=== PATIENT | female | born 1990 | race Caucasian/White ===

== ENCOUNTER 2019-06-07 12:13 | Emergency (ER) | payer MEDICAID ==
[2019-06-07 12:21] VITALS: BP 142/81
[2019-06-07] MEDS ORDERED: LIDOCAINE 1%-EPI 1:100000 20 ML MDV SUBQ STA (13:04)
[2019-06-07] MEDS ORDERED: BACITRACIN ZINC OINT 1 PACKET TOP STA (13:36)
--- NOTE | 2019-06-07 13:44 | ED Physician Documentation ---
PD HPI UPPER EXT INJURY - Stated complaint Stated Complaint: RT HAND LAC - Chief complaint Chief Complaint: Laceration - History obtained from History obtained from: Patient - History of Present Illness Location: Right, Hand Type of injury: Laceration Where injury occurred: Home Timing - onset: How many hours ago (1) Timing - details: Abrupt onset Pain level max: 2 Pain level now: 1 - Additonal information Additional information: 28-year-old female returning here presents to the emergency department for lace ration to the right hand. This occurred while doing dishes today. Unknown last tetanus. She is right-handed. Nothing makes it better or worse. Review of Systems Constitutional: denies: Fever, Chills : denies: Now EGA Skin: denies: Rash PD PAST MEDICAL HISTORY - Past Medical History Past Medical History: No - Allergies Allergies/Adverse Reactions: Allergies Allergy/AdvReac Type Severity Reaction Status Date / Time No Known Drug Allergies Allergy Verified 06/07/19 12:21 - Social History Does the pt smoke?: Yes Smoking Status: Current every day smoker PD ED PE NORMAL - Vitals Vital signs reviewed: Yes - General General: Alert and oriented X 3, No acute distress, Well developed/nourished - HEENT HEENT: Moist mucous membranes - Neck Neck: Supple, no meningeal sign - Derm Derm: Warm and dry - Neuro Neuro: Alert and oriented X 3 - Psych Psych: Normal mood, Normal affect PD ED PE EXPANDED - Extremities ZEINAB UE/Hands Visual: 1 - laceration (Curved, flap, 3 cm. Neurovascularly intact.) Results - Vitals Vitals: Vital Signs - 24 hr 06/07/19 12:18 Temperature 36.6 C Heart Rate 98 Respiratory 17 Rate Blood Pressure 142/81 H O2 Saturation 98 Oxygen O2 Source Room air Procedures - Laceration (location) Right hand Length in cm: 3 Wound type: Curved, Flap, Into subcut fat, Clean Neurovascular status: Sensory intact, Motor intact, Vascular intact Tendon involvement: Tendon intact Anesthesia: Lidocaine 1% with epi Wound Preparation: Irrigated copiously NS, Wound explored, To the base Skin layer closure: Nylon, Interrupted, Size #-0 - enter number (4) Other: Patient tolerated well, No complications, Neurovascular intact, Tetanus booster given (tdap) Complexity: Simple PD MEDICAL DECISION MAKING - ED course Complexity details: considered differential, d/w patient ED course: Patient presents to the emergency department with a right hand laceration. This was repaired. Tolerated well. Tdap given. Warnings of infection and instructions on wound care given at bedside. Also counseled on how to minimize scarring. Patient counseled regarding signs and symptoms for which I believe and urgent re-evaluation would be necessary. Patient with good understanding of and agreement to plan and is comfortable going home at this time This document was made in part using voice recognition software. While efforts are made to proofread this document, sound alike and grammatical errors may occur. Departure - Departure Disposition: 01 Home, Self Care Clinical Impression: Laceration of hand Qualifiers: Encounter type: initial encounter Foreign body presence: unspecified Laterality: right Qualified Code(s): S61.411A - Laceration without foreign body of right hand, initial encounter Condition: Good Instructions: ED Laceration Hand Follow-Up: your,doctor in 10-14 days for suture removal [Other] Comments: Keep the wound clean. Return if you worsen. The stitches should be removed in 10 to 14 days with your doctor. Return if you notice redness, swelling or drainage from the wound. Discharge Date/Time: 06/07/19 14:08
[2019-06-07] MEDS ORDERED: TETANUS/DIPHTHERIA/PERTUSSIS 0.5 ML SYRINGE IM ONE (13:46)
== END 2019-06-07 14:08 | disposition home or self-care (01) ==
LOC: ED 12:13
DX: S61.411A Laceration without foreign body of right hand, initial encounter (principal); W25.XXXA Contact with sharp glass, initial encounter; Y93.G1 Activity, food preparation and clean up; Y92.009 Unspecified place in unspecified non-institutional (private) residence as the place of occurrence of the external cause; F17.200 Nicotine dependence, unspecified, uncomplicated
CPT/HCPCS: 12002; 90471; 90715; 99283; 99284; A9270